=== PATIENT | female | born 2000 | race African-American/Black ===

== ENCOUNTER → 2023-03-08 | Outpatient (REF) | payer OTHER ==
[2023-03-08 18:29] LABS: BASO % 0.4 % (0.0-1.0); EOS # 0.2 10^3/uL (0.0-0.5); EOS % 1.9 % (0.0-3.0); HEMATOCRIT 37.1 % (36.0-47.0); HEMOGLOBIN 11.6 g/dl (12.0-15.5); LYMPH # 2.8 10^3/uL (1.5-5.0); LYMPH % 33.4 % (24.0-44.0); MEAN CORPUSCULAR HEMOGLOBIN 27.6 pg (27.0-33.0); MEAN CORPUSCULAR HGB CONC 31.3 g/dl (32.0-36.5); MEAN CORPUSCULAR VOLUME 88.3 fl (80.0-96.0); MONO # 0.4 10^3/uL (0.0-0.8); MONO % 5.1 % (2.0-8.0); NEUTROPHILS # 4.9 10^3/uL (1.5-8.5); NEUTROPHILS % 58.7 % (36.0-66.0); PLATELET COUNT, AUTOMATED 469 10^3/uL (150-450); WHITE BLOOD COUNT 8.3 10^3/uL (4.0-10.0)
[2023-03-08 18:54] LABS: TOTAL IRON BINDING CAPACITY 362 UG/DL (250-425)
[2023-03-08 18:55] LABS: ALBUMIN 3.8 G/DL (3.2-5.2); ALKALINE PHOSPHATASE 95 U/L (46-116); ALT/SGPT 18 U/L (7.0-40); AST/SGOT < 8 U/L (<34); BILIRUBIN,TOTAL 0.6 MG/DL (0.3-1.2); BLOOD UREA NITROGEN 12 MG/DL (9-23); CALCIUM LEVEL 9.3 MG/DL (8.5-10.1); CARBON DIOXIDE LEVEL 27 MMOL/L (20-31); CHLORIDE LEVEL 100 MMOL/L (98-107); CHOLESTEROL LEVEL 126 MG/DL (<200); CHOLESTEROL RISK RATIO 2.57 (<5); CREATININE FOR GFR 0.61 MG/DL (0.55-1.30); GLOMERULAR FILTRATION RATE > 60.0 (>60); GLUCOSE, FASTING 76 MG/DL (60-100); IRON (FE) 81 UG/DL (50-170); LDL CHOLESTEROL 58.8 MG/DL (<100); PERCENT SATURATION 22.4 % (13.2-45.0); POTASSIUM SERUM 4.5 MMOL/L (3.5-5.1); SODIUM LEVEL 135 MMOL/L (136-145); TOTAL PROTEIN 7.8 G/DL (5.7-8.2); TRIGLYCERIDES LEVEL 91 MG/DL (<150)
[2023-03-08 18:59] LABS: THYROID STIMULATING HORMONE 1.141 uIU/ML (0.55-4.78)
[2023-03-08 19:00] LABS: FERRITIN 54.8 NG/ML (7.3-270.7); TOTAL 25(OH) VITAMIN D 22.6 NG/ML (20.0-100.0)
[2023-03-08 19:10] LABS: HEMOGLOBIN A1c 5.5 % (4.0-6.0)
== END ==
LOC: M LAB REF 17:24
PROVIDERS: ATTEND Pediatrics
DX: D50.9 Iron deficiency anemia, unspecified (principal); E55.9 Vitamin D deficiency, unspecified; E66.9 Obesity, unspecified

== ENCOUNTER 2023-03-30 18:35 | Emergency (ER) | payer OTHER ==
[~2023-03-30] VITALS: Ht 154.9 cm; Wt 92.9 kg
[2023-03-30 19:20] LABS: BASO % 0.3 % (0.0-1.0); EOS # 0.2 10^3/uL (0.0-0.5); EOS % 1.9 % (0.0-3.0); HEMATOCRIT 33.4 % (36.0-47.0); HEMOGLOBIN 10.5 g/dl (12.0-15.5); LYMPH % 31.7 % (24.0-44.0); MEAN CORPUSCULAR HEMOGLOBIN 27.9 pg (27.0-33.0); MEAN CORPUSCULAR HGB CONC 31.4 g/dl (32.0-36.5); MEAN CORPUSCULAR VOLUME 88.6 fl (80.0-96.0); MONO # 0.6 10^3/uL (0.0-0.8); MONO % 5.7 % (2.0-8.0); NEUTROPHILS # 5.8 10^3/uL (1.5-8.5); NEUTROPHILS % 60.1 % (36.0-66.0); PLATELET COUNT, AUTOMATED 421 10^3/uL (150-450); RED BLOOD COUNT 3.77 10^6/uL (4.00-5.40); WHITE BLOOD COUNT 9.6 10^3/uL (4.0-10.0)
[2023-03-30 19:52] LABS: BLOOD UREA NITROGEN 11 MG/DL (9-23); CALCIUM LEVEL 9.9 MG/DL (8.5-10.1); CARBON DIOXIDE LEVEL 27 MMOL/L (20-31); CHLORIDE LEVEL 103 MMOL/L (98-107); CREATININE FOR GFR 0.61 MG/DL (0.55-1.30); GLOMERULAR FILTRATION RATE > 60.0 (>60); GLUCOSE, FASTING 100 MG/DL (60-100); POTASSIUM SERUM 4.1 MMOL/L (3.5-5.1); SODIUM LEVEL 138 MMOL/L (136-145)
[2023-03-30 20:05] LABS: HCG, SERUM QUANTITATIVE 3529.2 MIU/ML (<4.2)
[2023-03-30 22:18] VITALS: BP 129/58; TEMP 97.7; O2SAT 98
[2023-03-30] MEDS ORDERED: NS 1,000 ML IV ONE (23:05)
[2023-03-30] MEDS ORDERED: ONDANSETRON 4MG 2ML VIAL IV ONE (23:05)
== END 2023-03-31 00:44 | disposition home or self-care (01) ==
LOC: M ED 18:35
DX: O26.91 Pregnancy related conditions, unspecified, first trimester (principal); R42 Dizziness and giddiness; Z3A.01 Less than 8 weeks gestation of pregnancy
CPT/HCPCS: 36415; 76801; 76817; 80048; 81001; 84702; 85025; 86850; 86900; 86901; 87086; 93976; 96374; 99284; J2405

== ENCOUNTER 2023-04-23 22:47 | Emergency (ER) | payer OTHER ==
[~2023-04-23] VITALS: Ht 154.9 cm; Wt 91.6 kg
[2023-04-23 22:48] VITALS: BP 141/75; TEMP 97.3; O2SAT 99
[2023-04-23] MEDS ORDERED: PRENTAB7 PO (22:51)
[2023-04-23] MEDS ORDERED: NS 1,000 ML IV ONE (23:05)
[2023-04-23 23:33] LABS: BASO % 0.3 % (0.0-1.0); EOS # 0.1 10^3/uL (0.0-0.5); EOS % 1.2 % (0.0-3.0); HEMATOCRIT 35.1 % (36.0-47.0); HEMOGLOBIN 11.3 g/dl (12.0-15.5); LYMPH # 2.8 10^3/uL (1.5-5.0); LYMPH % 30.2 % (24.0-44.0); MEAN CORPUSCULAR HEMOGLOBIN 27.8 pg (27.0-33.0); MEAN CORPUSCULAR HGB CONC 32.2 g/dl (32.0-36.5); MEAN CORPUSCULAR VOLUME 86.5 fl (80.0-96.0); MONO # 0.5 10^3/uL (0.0-0.8); NEUTROPHILS # 5.8 10^3/uL (1.5-8.5); PLATELET COUNT, AUTOMATED 424 10^3/uL (150-450); RED BLOOD COUNT 4.06 10^6/uL (4.00-5.40); WHITE BLOOD COUNT 9.2 10^3/uL (4.0-10.0)
[2023-04-23 23:57] LABS: ALBUMIN 3.5 G/DL (3.2-5.2); ALKALINE PHOSPHATASE 82 U/L (46-116); ALT/SGPT 10 U/L (7.0-40); AST/SGOT < 8 U/L (<34); BILIRUBIN,TOTAL 0.5 MG/DL (0.3-1.2); BLOOD UREA NITROGEN 9 MG/DL (9-23); CALCIUM LEVEL 9.2 MG/DL (8.5-10.1); CARBON DIOXIDE LEVEL 25 MMOL/L (20-31); CHLORIDE LEVEL 102 MMOL/L (98-107); CREATININE FOR GFR 0.56 MG/DL (0.55-1.30); GLOMERULAR FILTRATION RATE > 60.0 (>60); GLUCOSE, FASTING 124 MG/DL (60-100); MAGNESIUM LEVEL 1.8 MG/DL (1.8-2.4); POTASSIUM SERUM 3.8 MMOL/L (3.5-5.1); SODIUM LEVEL 136 MMOL/L (136-145); TOTAL PROTEIN 7.9 G/DL (5.7-8.2)
== END 2023-04-24 02:05 | disposition home or self-care (01) ==
LOC: M ED 22:47
DX: O20.9 Hemorrhage in early pregnancy, unspecified (principal); Z3A.09 9 weeks gestation of pregnancy

== ENCOUNTER → 2023-05-09 | Outpatient (CLI) | payer OTHER ==
[~2023-05-09] MED LIST: PRENTAB7 PO
[2023-05-09 14:18] LABS: HEMATOCRIT 35.8 % (36.0-47.0); HEMOGLOBIN 11.3 g/dl (12.0-15.5); MEAN CORPUSCULAR HEMOGLOBIN 28.2 pg (27.0-33.0); MEAN CORPUSCULAR HGB CONC 31.6 g/dl (32.0-36.5); MEAN CORPUSCULAR VOLUME 89.3 fl (80.0-96.0); PLATELET COUNT, AUTOMATED 433 10^3/uL (150-450); RED BLOOD COUNT 4.01 10^6/uL (4.00-5.40); WHITE BLOOD COUNT 7.1 10^3/uL (4.0-10.0)
[2023-05-09 15:23] LABS: HIV 1&2 SCREEN NEGATIVE (NEGATIVE)
[2023-05-09 15:30] LABS: HEPATITIS C VIRUS ABY INDEX 0.17 INDEX (<0.8)
[2023-05-09 15:41] LABS: GC DNA AMPLIFICATION NEGATIVE (NEGATIVE)
== END ==
LOC: M PLALAB 08:58
PROVIDERS: ATTEND Obstetrics & Gynecology
DX: Z34.91 Encounter for supervision of normal pregnancy, unspecified, first trimester (principal)

== ENCOUNTER 2023-06-29 18:00 | Emergency (ER) | payer OTHER ==
[~2023-06-29] VITALS: Ht 154.9 cm; Wt 90.0 kg
[2023-06-29] MEDS ORDERED: ASPI81CH33 PO (18:21)
[2023-06-29] MEDS ORDERED: RA N1TAB PO (18:21)
[2023-06-29] MEDS ORDERED: B-12100011 SL (18:21)
[2023-06-29] MEDS ORDERED: FERR325T82 PO (18:21)
[2023-06-29] MEDS ORDERED: ACETAMINOPHEN 500 MG TAB PO ONE (19:30)
[2023-06-29 19:59] LABS: BASO % 0.2 % (0.0-1.0); EOS # 0.2 10^3/uL (0.0-0.5); EOS % 1.7 % (0.0-3.0); HEMATOCRIT 31.2 % (36.0-47.0); HEMOGLOBIN 10.2 g/dl (12.0-15.5); LYMPH # 2.5 10^3/uL (1.5-5.0); LYMPH % 28.3 % (24.0-44.0); MEAN CORPUSCULAR HEMOGLOBIN 29.3 pg (27.0-33.0); MEAN CORPUSCULAR HGB CONC 32.7 g/dl (32.0-36.5); MEAN CORPUSCULAR VOLUME 89.7 fl (80.0-96.0); MONO # 0.5 10^3/uL (0.0-0.8); MONO % 5.9 % (2.0-8.0); NEUTROPHILS # 5.6 10^3/uL (1.5-8.5); NEUTROPHILS % 63.4 % (36.0-66.0); PLATELET COUNT, AUTOMATED 358 10^3/uL (150-450); RED BLOOD COUNT 3.48 10^6/uL (4.00-5.40); WHITE BLOOD COUNT 8.8 10^3/uL (4.0-10.0)
[2023-06-29 20:24] LABS: BLOOD UREA NITROGEN 11 MG/DL (9-23); CALCIUM LEVEL 9.2 MG/DL (8.5-10.1); CARBON DIOXIDE LEVEL 27 MMOL/L (20-31); CHLORIDE LEVEL 105 MMOL/L (98-107); CREATININE FOR GFR 0.54 MG/DL (0.55-1.30); GLOMERULAR FILTRATION RATE > 60.0 (>60); GLUCOSE, FASTING 83 MG/DL (60-100); POTASSIUM SERUM 4.1 MMOL/L (3.5-5.1); SODIUM LEVEL 139 MMOL/L (136-145)
[2023-06-29 22:39] LABS: GC DNA AMPLIFICATION NEGATIVE (NEGATIVE)
[2023-06-29] MEDS ORDERED: METR-265 PO (22:44)
[2023-06-29] MEDS ORDERED: metroNIDAZOLE (FLAGYL) 500MG TABLET PO ONE (22:50)
[2023-06-29 23:00] VITALS: BP 137/74; TEMP 97.9; O2SAT 99
== END 2023-06-29 23:00 | disposition home or self-care (01) ==
LOC: M ED 18:00
DX: O23.592 Infection of other part of genital tract in pregnancy, second trimester (principal); O9A.22 Injury, poisoning and certain other consequences of external causes complicating childbirth; R10.2 Pelvic and perineal pain; W19.XXXA Unspecified fall, initial encounter; Z3A.18 18 weeks gestation of pregnancy

== ENCOUNTER → 2023-07-13 | Outpatient (CLI) | payer OTHER ==
[~2023-07-13] MED LIST changes: +ASPI81CH33 PO; +B-12100011 SL; +FERR325T82 PO; +METR-265 PO; +RA N1TAB PO
== END ==
LOC: M WHC 14:12
PROVIDERS: ATTEND Obstetrics & Gynecology
DX: Z34.82 Encounter for supervision of other normal pregnancy, second trimester (principal)

== ENCOUNTER → 2023-08-16 | Outpatient (CLI) | payer OTHER ==
[2023-08-16 16:30] LABS: HEMOGLOBIN 9.5 g/dl (12.0-15.5); MEAN CORPUSCULAR HEMOGLOBIN 29.1 pg (27.0-33.0); MEAN CORPUSCULAR HGB CONC 31.7 g/dl (32.0-36.5); PLATELET COUNT, AUTOMATED 322 10^3/uL (150-450); RED BLOOD COUNT 3.26 10^6/uL (4.00-5.40); WHITE BLOOD COUNT 9.8 10^3/uL (4.0-10.0)
[2023-08-16 20:58] LABS: CHLAMYDIA DNA AMPLIFICATION NEGATIVE (NEGATIVE); GC DNA AMPLIFICATION NEGATIVE (NEGATIVE)
== END ==
LOC: M PLALAB 12:44
PROVIDERS: ATTEND Obstetrics & Gynecology
DX: Z34.82 Encounter for supervision of other normal pregnancy, second trimester (principal)

== ENCOUNTER → 2023-08-29 | Outpatient (CLI) | payer OTHER ==
[~2023-08-29] MED LIST changes: +IRON SUCROSE 500 MG in NS 250 ML OVER 4 HRS IV ONE
== END ==
LOC: M INFU 09:11
PROVIDERS: ATTEND Obstetrics & Gynecology
DX: Z53.9 Procedure and treatment not carried out, unspecified reason (principal); D64.9 Anemia, unspecified

== ENCOUNTER 2023-09-08 09:04 | Outpatient (CLI) | payer OTHER ==
[~2023-09-08] VITALS: Ht 154.9 cm; Wt 95.5 kg
[~2023-09-08 09:04] MED LIST changes: -IRON SUCROSE 500 MG in NS 250 ML OVER 4 HRS IV ONE
[2023-09-08 09:28] VITALS: BP 122/59; O2SAT 100
[2023-09-08] MEDS ORDERED: IRON SUCROSE 500 MG in NS 250 ML OVER 4 HRS IV ONE (09:30)
[2023-09-08 11:00] VITALS: BP 132/64; O2SAT 100
[2023-09-08 12:00] VITALS: BP 116/56; O2SAT 98
[2023-09-08 13:50] VITALS: BP 138/60; O2SAT 100
== END 2023-09-08 14:00 ==
LOC: M INFU 09:04
PROVIDERS: ATTEND Obstetrics & Gynecology
DX: D64.9 Anemia, unspecified (principal)
CPT/HCPCS: 76815; 81001; 82731; 96365; 96366; J1756

== ENCOUNTER 2023-09-08 17:46 | Outpatient (CLI) | payer OTHER ==
[~2023-09-08] VITALS: Ht 154.9 cm; Wt 95.3 kg
[2023-09-08 18:05] VITALS: BP 130/69; O2SAT 98
[2023-09-08] MEDS ORDERED: HOME MED LIST COMPLETE! XX SCH (18:15)
== END 2023-09-08 21:07 | disposition home or self-care (01) ==
LOC: M LDO 17:46
PROVIDERS: ATTEND Obstetrics & Gynecology
DX: O26.893 Other specified pregnancy related conditions, third trimester (principal); R10.32 Left lower quadrant pain; Z3A.28 28 weeks gestation of pregnancy
CPT/HCPCS: 59025; 87086; G0463

== ENCOUNTER 2023-09-20 17:08 | Outpatient (CLI) | payer OTHER ==
[~2023-09-20] VITALS: Ht 154.9 cm; Wt 96.3 kg
[2023-09-20 17:29] VITALS: BP 85/37
[2023-09-20 17:32] VITALS: BP 103/51; O2SAT 98
[2023-09-20] MEDS ORDERED: HOME MED LIST COMPLETE! XX SCH (17:35)
[2023-09-20] MEDS ORDERED: ACETAMINOPHEN 500 MG TAB PO ONE (18:00)
[2023-09-20 19:23] LABS: APPEARANCE, URINE HAZY (CLEAR); BACTERIA, URINE AUTO 1+ (NEGATIVE); BILIRUBIN, URINE AUTO NEGATIVE (NEGATIVE); BLOOD, URINE BLOOD NEGATIVE (NEGATIVE); COLOR, URINE YELLOW (YELLOW); GLUCOSE, URINE (UA) AUTO NEGATIVE (NEGATIVE); KETONE, URINE AUTO NEGATIVE (NEGATIVE); LEUKOCYTE ESTERASE, URINE AUTO 3+ (NEGATIVE); MUCUS, URINE SMALL (NEGATIVE); NITRITE, URINE AUTO NEGATIVE (NEGATIVE); PROTEIN, URINE AUTO NEGATIVE (NEGATIVE); RBC, URINE AUTO 1 /HPF (0-3); SPECIFIC GRAVITY URINE AUTO 1.012 (1.002-1.035); SQUAMOUS EPITHELIAL CELL UR AU 7 /HPF (0-6); UROBILINOGEN, URINE AUTO 0.2 mg/dL (0.0-2.0); WBC, URINE AUTO 5 /HPF (0-3)
[2023-09-20] MEDS ORDERED: NITROFURANTOIN (MACROBID) 100 MG CAP PO ONE (20:00)
== END 2023-09-20 20:10 | disposition home or self-care (01) ==
LOC: M LDO 17:08
PROVIDERS: ATTEND Obstetrics & Gynecology
DX: O26.893 Other specified pregnancy related conditions, third trimester (principal); M54.41 Lumbago with sciatica, right side; Z3A.30 30 weeks gestation of pregnancy
CPT/HCPCS: 59025; 81001; 87086; G0463

== ENCOUNTER 2023-10-03 13:02 | Outpatient (CLI) | payer OTHER ==
[~2023-10-03] VITALS: Ht 154.9 cm; Wt 98.4 kg
[2023-10-03 13:25] VITALS: BP 106/53
[2023-10-03 14:29] LABS: APPEARANCE, URINE HAZY (CLEAR); BACTERIA, URINE AUTO NEGATIVE (NEGATIVE); BILIRUBIN, URINE AUTO NEGATIVE (NEGATIVE); BLOOD, URINE BLOOD NEGATIVE (NEGATIVE); COLOR, URINE YELLOW (YELLOW); GLUCOSE, URINE (UA) AUTO NEGATIVE (NEGATIVE); KETONE, URINE AUTO NEGATIVE (NEGATIVE); LEUKOCYTE ESTERASE, URINE AUTO 2+ (NEGATIVE); MUCUS, URINE SMALL (NEGATIVE); NITRITE, URINE AUTO NEGATIVE (NEGATIVE); PROTEIN, URINE AUTO NEGATIVE (NEGATIVE); RBC, URINE AUTO 2 /HPF (0-3); SPECIFIC GRAVITY URINE AUTO 1.012 (1.002-1.035); SQUAMOUS EPITHELIAL CELL UR AU 8 /HPF (0-6); UROBILINOGEN, URINE AUTO 0.2 mg/dL (0.0-2.0); WBC, URINE AUTO 20 /HPF (0-3)
[2023-10-03] MEDS ORDERED: ACETAMINOPHEN 500 MG TAB PO ONE (14:50)
== END 2023-10-03 15:30 | disposition home or self-care (01) ==
LOC: M LDO 13:02
PROVIDERS: ATTEND Advanced Practice Midwife
DX: O47.1 False labor at or after 37 completed weeks of gestation (principal); O26.893 Other specified pregnancy related conditions, third trimester; O99.013 Anemia complicating pregnancy, third trimester; D50.9 Iron deficiency anemia, unspecified; R51.9 Headache, unspecified; Z87.59 Personal history of other complications of pregnancy, childbirth and the puerperium; Z3A.32 32 weeks gestation of pregnancy
CPT/HCPCS: 59025; 76817; 81001; 87088; G0463

== ENCOUNTER 2023-10-04 16:00 | Emergency (ER) | payer OTHER ==
[~2023-10-04] VITALS: Ht 154.9 cm; Wt 97.2 kg
[2023-10-04 16:35] LABS: BASO % 0.2 % (0.0-1.0); EOS # 0.1 10^3/uL (0.0-0.5); EOS % 0.6 % (0.0-3.0); HEMATOCRIT 32.8 % (36.0-47.0); HEMOGLOBIN 10.5 g/dl (12.0-15.5); LYMPH # 2.7 10^3/uL (1.5-5.0); LYMPH % 23.6 % (24.0-44.0); MEAN CORPUSCULAR HEMOGLOBIN 29.2 pg (27.0-33.0); MEAN CORPUSCULAR VOLUME 91.1 fl (80.0-96.0); MONO # 0.5 10^3/uL (0.0-0.8); MONO % 4.7 % (2.0-8.0); NEUTROPHILS % 69.9 % (36.0-66.0); PLATELET COUNT, AUTOMATED 315 10^3/uL (150-450); WHITE BLOOD COUNT 11.5 10^3/uL (4.0-10.0)
[2023-10-04 16:48] VITALS: TEMP 97.5
[2023-10-04 16:57] LABS: INR 1.03; PROTHROMBIN TIME 13.2 SECONDS (12.5-14.5)
[2023-10-04 16:58] LABS: PARTIAL THROMBOPLASTIN TIME 27.8 SECONDS (24.8-34.2)
[2023-10-04] MEDS ORDERED: ACETAMINOPHEN TAB 650MG DOSE (2X325MG) PO ONE (17:00)
[2023-10-04 17:05] LABS: ALBUMIN 3.1 G/DL (3.2-5.2); ALKALINE PHOSPHATASE 147 U/L (46-116); ALT/SGPT 12 U/L (7.0-40); AST/SGOT 31 U/L (<34); BILIRUBIN,DIRECT < 0.1 MG/DL (<0.4); BILIRUBIN,TOTAL 0.4 MG/DL (0.3-1.2); BLOOD UREA NITROGEN 6 MG/DL (9-23); CALCIUM LEVEL 8.9 MG/DL (8.5-10.1); CARBON DIOXIDE LEVEL 22 MMOL/L (20-31); CHLORIDE LEVEL 105 MMOL/L (98-107); CREATININE FOR GFR 0.42 MG/DL (0.55-1.30); GLOMERULAR FILTRATION RATE > 60.0 (>60); GLUCOSE, FASTING 72 MG/DL (60-100); POTASSIUM SERUM 4.8 MMOL/L (3.5-5.1); SODIUM LEVEL 135 MMOL/L (136-145); TOTAL PROTEIN 7.1 G/DL (5.7-8.2)
[2023-10-04] MEDS ORDERED: ISOVUE-370 76% 100ML VIAL As Ordered ONE (17:37)
[2023-10-04 18:45] VITALS: BP 101/56; O2SAT 98
== END 2023-10-04 19:16 | disposition admitted as inpatient to this hospital (09) ==
LOC: EDBD 16:00 → M ED 16:00
DX: R10.11 Right upper quadrant pain (principal); R10.31 Right lower quadrant pain; V49.50XA Passenger injured in collision with unspecified motor vehicles in traffic accident, initial encounter; Y92.9 Unspecified place or not applicable; Y93.9 Activity, unspecified; Y99.9 Unspecified external cause status; Z3A.32 32 weeks gestation of pregnancy; Z79.82 Long term (current) use of aspirin; Z79.899 Other long term (current) drug therapy
CPT/HCPCS: 74177; 76705; 80047; 80048; 80076; 81001; 85025; 85610; 85730; 86850; 86900; 86901; 87086; 93041; 94760; 99285; Q9967

== ENCOUNTER 2023-10-04 19:20 | Outpatient (CLI) | payer OTHER ==
[~2023-10-04] VITALS: Ht 154.9 cm; Wt 98.4 kg
[2023-10-04 19:44] VITALS: BP 117/63
[2023-10-04 23:08] VITALS: BP 122/59
== END 2023-10-04 23:12 | disposition home or self-care (01) ==
LOC: M LDO 19:20
PROVIDERS: ATTEND Obstetrics & Gynecology
DX: Z04.1 Encounter for examination and observation following transport accident (principal); O26.893 Other specified pregnancy related conditions, third trimester; R10.817 Generalized abdominal tenderness; M54.59 Other low back pain; O99.013 Anemia complicating pregnancy, third trimester; D50.9 Iron deficiency anemia, unspecified; Z87.59 Personal history of other complications of pregnancy, childbirth and the puerperium; Z3A.32 32 weeks gestation of pregnancy
CPT/HCPCS: 36415; 59025; 85460; G0463

== ENCOUNTER → 2023-10-10 | Outpatient (CLI) | payer OTHER ==
[2023-10-10 16:35] LABS: HEMATOCRIT 29.5 % (36.0-47.0); HEMOGLOBIN 9.5 g/dl (12.0-15.5); MEAN CORPUSCULAR HGB CONC 32.2 g/dl (32.0-36.5); MEAN CORPUSCULAR VOLUME 93.1 fl (80.0-96.0); PLATELET COUNT, AUTOMATED 325 10^3/uL (150-450); RED BLOOD COUNT 3.17 10^6/uL (4.00-5.40); WHITE BLOOD COUNT 9.1 10^3/uL (4.0-10.0)
== END ==
LOC: M PLALAB 13:34
PROVIDERS: ATTEND Obstetrics & Gynecology
DX: Z36.9 Encounter for antenatal screening, unspecified (principal); O99.013 Anemia complicating pregnancy, third trimester; D50.9 Iron deficiency anemia, unspecified; O26.893 Other specified pregnancy related conditions, third trimester; O98.313 Other infections with a predominantly sexual mode of transmission complicating pregnancy, third trimester; A60.00 Herpesviral infection of urogenital system, unspecified; Z87.59 Personal history of other complications of pregnancy, childbirth and the puerperium; Z3A.33 33 weeks gestation of pregnancy; Z79.82 Long term (current) use of aspirin
CPT/HCPCS: 36415; 59025; 85027; G0463

== ENCOUNTER 2023-10-18 22:23 | Outpatient (CLI) | payer OTHER ==
[~2023-10-18] VITALS: Ht 154.9 cm; Wt 96.9 kg
[2023-10-18 23:31] VITALS: BP 133/58
== END 2023-10-18 23:21 | disposition home or self-care (01) ==
LOC: M LDO 22:23
PROVIDERS: ATTEND Specialist
DX: O26.893 Other specified pregnancy related conditions, third trimester (principal); O99.73 Diseases of the skin and subcutaneous tissue complicating the puerperium; O98.53 Other viral diseases complicating the puerperium; O99.013 Anemia complicating pregnancy, third trimester; L73.2 Hidradenitis suppurativa; N90.89 Other specified noninflammatory disorders of vulva and perineum; R87.810 Cervical high risk human papillomavirus (HPV) DNA test positive; D50.9 Iron deficiency anemia, unspecified; Z3A.34 34 weeks gestation of pregnancy
CPT/HCPCS: 59025; 87529; G0463

== ENCOUNTER 2023-10-28 13:18 | Outpatient (CLI) | payer OTHER ==
[~2023-10-28] VITALS: Ht 154.9 cm; Wt 98.1 kg
[2023-10-28 13:44] VITALS: BP 141/67
[2023-10-28] MEDS ORDERED: HOME MED LIST COMPLETE! XX SCH (14:00)
[2023-10-28 14:38] VITALS: BP 133/66
== END 2023-10-28 15:15 | disposition home or self-care (01) ==
LOC: M LDO 13:18
PROVIDERS: ATTEND Advanced Practice Midwife
DX: O47.03 False labor before 37 completed weeks of gestation, third trimester (principal); Z3A.35 35 weeks gestation of pregnancy; O99.013 Anemia complicating pregnancy, third trimester; D50.9 Iron deficiency anemia, unspecified
CPT/HCPCS: 59025; G0463

== ENCOUNTER 2023-11-02 15:13 | Outpatient (CLI) | payer OTHER ==
[~2023-11-02] VITALS: Ht 154.9 cm; Wt 97.9 kg
[2023-11-02] MEDS ORDERED: ACET-1349 PO (15:34)
[2023-11-02] MEDS ORDERED: HOME MED LIST COMPLETE! XX SCH (15:35)
[2023-11-02 15:40] VITALS: BP 118/69
[2023-11-02 16:56] LABS: APPEARANCE, URINE HAZY (CLEAR); BACTERIA, URINE AUTO NEGATIVE (NEGATIVE); BILIRUBIN, URINE AUTO NEGATIVE (NEGATIVE); BLOOD, URINE BLOOD 1+ (NEGATIVE); COLOR, URINE STRAW (YELLOW); GLUCOSE, URINE (UA) AUTO NEGATIVE (NEGATIVE); KETONE, URINE AUTO NEGATIVE (NEGATIVE); LEUKOCYTE ESTERASE, URINE AUTO 2+ (NEGATIVE); NITRITE, URINE AUTO NEGATIVE (NEGATIVE); PROTEIN, URINE AUTO NEGATIVE (NEGATIVE); RBC, URINE AUTO 0 /HPF (0-3); SPECIFIC GRAVITY URINE AUTO 1.006 (1.002-1.035); SQUAMOUS EPITHELIAL CELL UR AU 2 /HPF (0-6); UROBILINOGEN, URINE AUTO 0.2 mg/dL (0.0-2.0); WBC, URINE AUTO 5 /HPF (0-3)
== END 2023-11-02 18:56 | disposition home or self-care (01) ==
LOC: M LDO 15:13
PROVIDERS: ATTEND Advanced Practice Midwife
DX: O47.03 False labor before 37 completed weeks of gestation, third trimester (principal); Z3A.36 36 weeks gestation of pregnancy
CPT/HCPCS: 59025; 81001; 87081; G0463

== ENCOUNTER 2023-11-09 15:14 | Outpatient (CLI) | payer OTHER ==
[~2023-11-09] VITALS: Ht 154.9 cm; Wt 99.2 kg
[~2023-11-09 15:14] MED LIST changes: +ACET-1349 PO
== END 2023-11-09 18:00 | disposition home or self-care (01) ==
LOC: M LDO 15:14
PROVIDERS: ATTEND Advanced Practice Midwife
DX: O36.8130 Decreased fetal movements, third trimester, not applicable or unspecified (principal); O99.013 Anemia complicating pregnancy, third trimester; D50.9 Iron deficiency anemia, unspecified; Z3A.37 37 weeks gestation of pregnancy
CPT/HCPCS: 59025; 76815; 76819; 76820; 96365; 96366; G0463; J1756

== ENCOUNTER 2023-11-19 13:20 | Inpatient (IN) | payer OTHER ==
[2023-11-19] VITALS (19 sets, daily range): BP systolic 102–170; BP diastolic 56–96
[~2023-11-19] VITALS: Ht 154.9 cm; Wt 100.1 kg
[2023-11-19] MEDS ORDERED: VALT500T PO (13:42)
[2023-11-19] MEDS ORDERED: HOME MED LIST COMPLETE! XX SCH (13:45)
[2023-11-19] MEDS ORDERED: METHYLERGONOVINE MALEATE 0.2MG/ML 1ML VIAL IM PRN (15:30)
[2023-11-19] MEDS ORDERED: TRANEXAMIC ACID INJection 1,000 MG in NS 100 ML IV PRN (15:30)
[2023-11-19] MEDS ORDERED: CARBOPROST TROMETHAMINE 250 MCG/ML AMP IM PRN (15:30)
[2023-11-19] MEDS ORDERED: OXYTOCIN DRIP 30 UNITS in IV 1 EA IV PRN (15:30)
[2023-11-19 15:50] LABS: HEMATOCRIT 33.1 % (36.0-47.0); HEMOGLOBIN 10.7 g/dl (12.0-15.5); MEAN CORPUSCULAR HEMOGLOBIN 28.8 pg (27.0-33.0); MEAN CORPUSCULAR HGB CONC 32.3 g/dl (32.0-36.5); MEAN CORPUSCULAR VOLUME 89.2 fl (80.0-96.0); PLATELET COUNT, AUTOMATED 323 10^3/uL (150-450); RED BLOOD COUNT 3.71 10^6/uL (4.00-5.40); WHITE BLOOD COUNT 7.9 10^3/uL (4.0-10.0)
[2023-11-19] MEDS ORDERED: diphenhydrAMINE 50MG/ML VIAL IV PRN ×2 (15:50→22:15)
[2023-11-19] MEDS ORDERED: ePHEDrine SULFATE 25 MG/5 ML(5MG/ML) SYRINGE IVP PRN (15:50)
[2023-11-19] MEDS ORDERED: EPIDURAL/PCA KEYS XX PRN (15:50)
[2023-11-19] MEDS ORDERED: NALOXONE INJ 0.4MG/1ML VIAL IV PRN ×3 (15:50→22:15)
[2023-11-19] MEDS ORDERED: ONDANSETRON 4MG 2ML VIAL IV PRN ×2 (15:50→22:15)
[2023-11-19] MEDS ORDERED: LR 500 ML IV PRN (15:50)
[2023-11-19] MEDS: LACTATED RINGER'S 1000 ML IV STA (15:52)
[2023-11-19] MEDS: FENTANYL/ROPIVACAINE/NACL BAG 100 ML EPIDURAL SCH (16:18)
[2023-11-19] MEDS: LR 1,000 ML IV SCH (16:35)
[2023-11-19] MEDS ORDERED: LR 1,000 ML IV SCH (18:10)
[2023-11-19] MEDS: OXYTOCIN DRIP 30 UNITS in IV 1 EA IV SCH (18:20)
[2023-11-19] MEDS: BICITRA 30ML SOLN UDC PO ONE (21:43)
[2023-11-19] MEDS: ceFAZolin SOD 2 GM in IV 1 EA IV ONE (21:44)
[2023-11-19] MEDS: AZITHROMYCIN INJ 500 MG, VIAL MATE ADAPTER 1 EACH in NS 250 ML IV ONE (21:44)
[2023-11-19] MEDS ORDERED: LIDOCAINE 2% W/EPINEPHRINE 20ML VIAL **PRES FREE As Ordered ONE (21:48)
[2023-11-19] MEDS ORDERED: OXYTOCIN INJ 10UNITS/ML 1ML VIAL As Ordered ONE (21:48)
[2023-11-19] MEDS ORDERED: MORPHINE PRES-FREE INJ 10 MG/10 ML VIAL As Ordered ONE (22:11)
[2023-11-19] MEDS ORDERED: **NOTE PATIENT COMMENT** MISC XX SCH (22:15)
[2023-11-19] MEDS ORDERED: fentaNYL 100 MCG/2 ML INJECTION IV PRN (22:15)
[2023-11-19] MEDS ORDERED: oxyCODONE 5MG TAB PO PRN ×2 (22:15→23:25)
[2023-11-19] MEDS ORDERED: METOCLOPRAMIDE INJ 10MG/2ML VIAL IV PRN (22:15)
[2023-11-19] MEDS ORDERED: SLF 3 ML SYR IV SCH (22:15)
[2023-11-19] MEDS ORDERED: MEPERIDINE 25 MG/ML 1ML VIAL IV PRN (22:15)
[2023-11-19] MEDS ORDERED: ONDANSETRON 4MG 2ML VIAL As Ordered ONE (22:22)
[2023-11-19] MEDS ORDERED: OXYTOCIN 30UNITS IN 0.9% NaCl 500ML IV BAG As Ordered ONE (22:31)
[2023-11-19] MEDS ORDERED: KETOROLAC 60MG 2ML VIAL As Ordered ONE (22:47)
[2023-11-19] MEDS ORDERED: RHOGAM 300MCG (1500IU) INJ IM SCH (23:25)
[2023-11-19] MEDS ORDERED: SIMETHICONE 80MG CHEW TAB PO PRN (23:25)
[2023-11-20] VITALS (11 sets, daily range): BP systolic 112–126; BP diastolic 57–66; TEMP 97.6; O2SAT 96–100
[2023-11-20] MEDS: ACETAMINOPHEN 500 MG TAB PO SCH (00:42)
[2023-11-20] MEDS: OXYTOCIN DRIP 30 UNITS in IV 1 EA IV SCH (02:57)
[2023-11-20] MEDS: KETOROLAC 30 MG/ML 1ML VIAL IV SCH (05:46)
[2023-11-20 07:10] LABS: HEMATOCRIT 28.3 % (36.0-47.0); HEMOGLOBIN 9.3 g/dl (12.0-15.5); MEAN CORPUSCULAR HEMOGLOBIN 29.9 pg (27.0-33.0); MEAN CORPUSCULAR HGB CONC 32.9 g/dl (32.0-36.5); PLATELET COUNT, AUTOMATED 249 10^3/uL (150-450); RED BLOOD COUNT 3.11 10^6/uL (4.00-5.40); WHITE BLOOD COUNT 11.2 10^3/uL (4.0-10.0)
[2023-11-20] MEDS: PRENATAL VITAMINS CHEWABLE TABLET PO SCH (07:58)
[2023-11-20] MEDS ORDERED: IBUP-1022 PO (10:34)
[2023-11-20] MEDS ORDERED: COLA100C5 PO (10:34)
[2023-11-20] MEDS ORDERED: ACET-683 PO (10:34)
[2023-11-20] MEDS ORDERED: OXYC-517 PO (10:34)
[2023-11-20] MEDS: DOCUSATE SODIUM 100MG CAPSULE PO PRN (11:42)
[2023-11-20] MEDS: FERROUS SULFATE 325MG TAB PO SCH (11:43)
[2023-11-20] MEDS: IBUPROFEN 600MG TAB PO SCH (23:26)
[2023-11-21 02:00] VITALS: BP 122/60; O2SAT 98
[2023-11-21 06:00] VITALS: BP 112/61; O2SAT 98
[2023-11-21] MEDS ORDERED: fentaNYL 100 MCG/2 ML INJECTION As Ordered ONE (07:05)
[2023-11-21] MEDS: MEASLES,MUMPS,RUBELLA VACCINE INJ (MMR-II) SC.IMMUN ONE (09:00)
[2023-11-21] MEDS: oxyCODONE 5MG TAB PO PRN (09:38)
[2023-11-21 10:30] VITALS: BP 103/65; O2SAT 98
[2023-11-21 13:40] VITALS: BP 129/67; O2SAT 99
[2023-11-21 18:00] VITALS: BP 122/63; O2SAT 100
[2023-11-21 22:00] VITALS: BP 118/68; O2SAT 99
[2023-11-22 02:00] VITALS: BP 114/61; O2SAT 100
[2023-11-22 06:00] VITALS: BP 108/58; O2SAT 97
[2023-11-22 10:00] VITALS: BP 117/56; O2SAT 97
== END 2023-11-22 15:09 | disposition home or self-care (01) | DRG 773 ==
LOC: M LDO 13:20 → M LDI 15:10 → M OBS 11-20 00:30
PROVIDERS: ADMIT Obstetrics & Gynecology; ATTEND Obstetrics & Gynecology
PROC: 10907ZC Drainage of Amniotic Fluid, Therapeutic from Products of Conception, Via Natural or Artificial Opening (ICD-10-PCS; 2023-11-19)
PROC: 10D00Z1 Extraction of Products of Conception, Low, Open Approach (ICD-10-PCS; principal; 2023-11-19 21:55)
DX: O98.32 Other infections with a predominantly sexual mode of transmission complicating childbirth (principal); Z3A.38 38 weeks gestation of pregnancy; O99.02 Anemia complicating childbirth; D64.9 Anemia, unspecified; Z79.899 Other long term (current) drug therapy; O77.0 Labor and delivery complicated by meconium in amniotic fluid; O76 Abnormality in fetal heart rate and rhythm complicating labor and delivery; O62.0 Primary inadequate contractions; Z37.0 Single live birth

== ENCOUNTER → 2023-12-09 | Outpatient (REF) | payer OTHER ==
[~2023-12-09] MED LIST changes: +ACET-683 PO; +COLA100C5 PO; +IBUP-1022 PO; +OXYC-517 PO; +VALT500T PO
[2023-12-09 12:09] LABS: BASO % 0.4 % (0.0-1.0); EOS # 0.2 10^3/uL (0.0-0.5); EOS % 2.7 % (0.0-3.0); HEMOGLOBIN 12.2 g/dl (12.0-15.5); LYMPH # 2.7 10^3/uL (1.5-5.0); LYMPH % 34.2 % (24.0-44.0); MEAN CORPUSCULAR HEMOGLOBIN 28.8 pg (27.0-33.0); MEAN CORPUSCULAR HGB CONC 31.3 g/dl (32.0-36.5); MONO # 0.4 10^3/uL (0.0-0.8); MONO % 5.5 % (2.0-8.0); NEUTROPHILS # 4.4 10^3/uL (1.5-8.5); NEUTROPHILS % 56.8 % (36.0-66.0); PLATELET COUNT, AUTOMATED 491 10^3/uL (150-450); RED BLOOD COUNT 4.24 10^6/uL (4.00-5.40); WHITE BLOOD COUNT 7.8 10^3/uL (4.0-10.0)
[2023-12-09 12:36] LABS: PERCENT SATURATION 16.4 % (13.2-45.0)
[2023-12-09 12:39] LABS: THYROID STIMULATING HORMONE 1.969 uIU/ML (0.55-4.78)
== END ==
LOC: M LAB REF 11:42
PROVIDERS: ATTEND Pediatrics
DX: D64.9 Anemia, unspecified (principal)

== ENCOUNTER → 2023-12-16 | Outpatient (CLI) | payer OTHER | LOC: M RAD 10:24 | PROVIDERS: ATTEND Pediatrics | DX: M51.17 Intervertebral disc disorders with radiculopathy, lumbosacral region (principal) ==

== ENCOUNTER 2024-01-30 12:20 | Outpatient (CLI) | payer OTHER ==
[~2024-01-30] VITALS: Ht 154.9 cm; Wt 94.5 kg
[2024-01-30 12:20] VITALS: BP 129/60; O2SAT 99
[2024-01-30] MEDS: IRON SUCROSE 300 MG in NS 250 ML OVER 90 MIN. IV ONE (12:29)
[2024-01-30 14:15] VITALS: BP 121/87; O2SAT 99
== END 2024-01-30 14:20 ==
LOC: M INFU 12:20
PROVIDERS: ATTEND Specialist
DX: D50.9 Iron deficiency anemia, unspecified (principal)
CPT/HCPCS: 96365; 96366; J1756

== ENCOUNTER 2024-02-06 16:20 | Outpatient (CLI) | payer OTHER ==
[~2024-02-06] VITALS: Ht 154.9 cm; Wt 94.5 kg
[2024-02-06 16:20] VITALS: BP 136/66; O2SAT 97
[2024-02-06] MEDS: IRON SUCROSE 300 MG in NS 250 ML OVER 90 MIN. IV ONE (16:21)
[2024-02-06 17:29] VITALS: BP 116/59; O2SAT 99
== END 2024-02-06 17:33 | disposition home or self-care (01) ==
LOC: M INFU 16:20
PROVIDERS: ATTEND Specialist
DX: D50.9 Iron deficiency anemia, unspecified (principal)
CPT/HCPCS: 96365; J1756

== ENCOUNTER 2024-03-05 12:30 | Outpatient (CLI) | payer OTHER ==
[~2024-03-05] VITALS: Ht 154.9 cm; Wt 94.5 kg
[2024-03-05 12:35] VITALS: BP 115/55; O2SAT 98
[2024-03-05] MEDS: IRON SUCROSE 300 MG in NS 250 ML OVER 90 MIN. IV ONE (13:04)
[2024-03-05 14:40] VITALS: BP 113/57; O2SAT 100
== END 2024-03-05 14:50 ==
LOC: M INFU 12:30
PROVIDERS: ATTEND Specialist
DX: D50.9 Iron deficiency anemia, unspecified (principal)
CPT/HCPCS: 96365; 96366; J1756

== ENCOUNTER → 2024-04-17 | Outpatient (CLI) | payer OTHER ==
[2024-04-17 18:26] LABS: HEPATITIS B SURFACE ANTIGEN NEGATIVE (NEGATIVE)
[2024-04-17 18:38] LABS: HIV 1&2 SCREEN NEGATIVE (NEGATIVE)
[2024-04-17 18:47] LABS: GC DNA AMPLIFICATION NEGATIVE (NEGATIVE); HEPATITIS B CORE ANTIBODY IGM NEGATIVE (NEGATIVE); HEPATITIS C VIRUS ABY INDEX < 0.02 INDEX (<0.8)
== END ==
LOC: M PLALAB 15:38
PROVIDERS: ATTEND Obstetrics & Gynecology
DX: Z01.419 Encounter for gynecological examination (general) (routine) without abnormal findings (principal); Z20.2 Contact with and (suspected) exposure to infections with a predominantly sexual mode of transmission

== ENCOUNTER → 2024-10-31 | Outpatient (REF) | payer OTHER | LOC: M LAB REF 16:23 | PROVIDERS: ATTEND Pediatrics | DX: R30.0 Dysuria (principal) ==

== ENCOUNTER → 2024-11-05 | Outpatient (CLI) | payer OTHER | LOC: M PLAIMG 14:39 | PROVIDERS: ATTEND Pediatrics | DX: K80.18 Calculus of gallbladder with other cholecystitis without obstruction (principal) ==

== ENCOUNTER → 2024-11-14 | Outpatient (REF) | payer OTHER ==
[2024-11-14 13:56] LABS: BASO % 0.4 % (0.0-1.0); EOS # 0.1 10^3/uL (0.0-0.5); HEMATOCRIT 40.2 % (36.0-47.0); HEMOGLOBIN 12.5 g/dl (12.0-15.5); LYMPH # 2.2 10^3/uL (1.5-5.0); LYMPH % 31.4 % (24.0-44.0); MEAN CORPUSCULAR HEMOGLOBIN 28.2 pg (27.0-33.0); MEAN CORPUSCULAR HGB CONC 31.1 g/dl (32.0-36.5); MEAN CORPUSCULAR VOLUME 90.7 fl (80.0-96.0); MONO # 0.3 10^3/uL (0.0-0.8); MONO % 4.1 % (2.0-8.0); NEUTROPHILS # 4.4 10^3/uL (1.5-8.5); NEUTROPHILS % 61.8 % (36.0-66.0); PLATELET COUNT, AUTOMATED 430 10^3/uL (150-450); RED BLOOD COUNT 4.43 10^6/uL (4.00-5.40)
[2024-11-14 14:03] LABS: HEMOGLOBIN A1c 5.4 % (4.0-6.0)
[2024-11-14 14:25] LABS: ALBUMIN 3.9 G/DL (3.2-5.2); ALKALINE PHOSPHATASE 92 U/L (35-104); ALT/SGPT 31 U/L (7.0-40); AST/SGOT 31 U/L (<34); BILIRUBIN,TOTAL 0.6 MG/DL (0.3-1.2); BLOOD UREA NITROGEN 12 MG/DL (9-23); CALCIUM LEVEL 9.2 MG/DL (8.5-10.1); CARBON DIOXIDE LEVEL 27 MMOL/L (20-31); CHLORIDE LEVEL 105 MMOL/L (98-107); CREATININE FOR GFR 0.69 MG/DL (0.55-1.30); GLOMERULAR FILTRATION RATE > 60.0 (>60); GLUCOSE, FASTING 128 MG/DL (60-100); POTASSIUM SERUM 4.3 MMOL/L (3.5-5.1); SODIUM LEVEL 141 MMOL/L (136-145); TOTAL PROTEIN 8.1 G/DL (5.7-8.2)
== END ==
LOC: M LAB REF 13:01
PROVIDERS: ATTEND Pediatrics
DX: R31.0 Gross hematuria (principal); Z68.38 Body mass index [BMI] 38.0-38.9, adult; R35.0 Frequency of micturition

== ENCOUNTER → 2025-01-10 | Outpatient (REF) | payer OTHER ==
[2025-01-10 14:36] LABS: BASO % 0.4 % (0.0-1.0); EOS # 0.2 10^3/uL (0.0-0.5); EOS % 2.7 % (0.0-3.0); HEMATOCRIT 38.4 % (36.0-47.0); LYMPH # 2.9 10^3/uL (1.5-5.0); LYMPH % 32.2 % (24.0-44.0); MEAN CORPUSCULAR HEMOGLOBIN 28.7 pg (27.0-33.0); MEAN CORPUSCULAR HGB CONC 31.3 g/dl (32.0-36.5); MEAN CORPUSCULAR VOLUME 91.9 fl (80.0-96.0); MONO # 0.5 10^3/uL (0.0-0.8); MONO % 5.2 % (2.0-8.0); NEUTROPHILS # 5.3 10^3/uL (1.5-8.5); NEUTROPHILS % 58.9 % (36.0-66.0); PLATELET COUNT, AUTOMATED 396 10^3/uL (150-450); RED BLOOD COUNT 4.18 10^6/uL (4.00-5.40)
[2025-01-10 14:38] LABS: C REACTIVE PROTEIN QUANTITATIV 5.14 MG/DL (<1.0)
[2025-01-10 14:39] LABS: ALBUMIN 3.8 G/DL (3.2-5.2); ALKALINE PHOSPHATASE 89 U/L (35-104); ALT/SGPT 19 U/L (7.0-40); AST/SGOT 15 U/L (<34); BILIRUBIN,TOTAL 0.6 MG/DL (0.3-1.2); BLOOD UREA NITROGEN 12 MG/DL (9-23); CALCIUM LEVEL 9.3 MG/DL (8.5-10.1); CARBON DIOXIDE LEVEL 28 MMOL/L (20-31); CHLORIDE LEVEL 105 MMOL/L (98-107); CREATININE FOR GFR 0.63 MG/DL (0.55-1.30); GLOMERULAR FILTRATION RATE > 90.0 (>60); GLUCOSE, FASTING 80 MG/DL (60-100); POTASSIUM SERUM 4.2 MMOL/L (3.5-5.1); SODIUM LEVEL 141 MMOL/L (136-145); TOTAL PROTEIN 8.1 G/DL (5.7-8.2)
[2025-01-10 14:40] LABS: RHEUMATOID FACTOR QUANT < 3.5 IU/ML (<14)
[2025-01-10 14:42] LABS: ERYTHROCYTE SEDIMENTATION RATE 88 mm/hr (0-20)
== END ==
LOC: M LAB REF 11:50
PROVIDERS: ATTEND Nurse Practitioner Family
DX: M25.50 Pain in unspecified joint (principal)

== ENCOUNTER → 2025-05-16 | Outpatient (CLI) | payer OTHER ==
[~2025-05-16] MED LIST changes: -IBUP-1022 PO; +IBUP600T42 PO
[2025-05-16 09:48] LABS: ESTIMATED AVERAGE GLUCOSE 108.0 MG/DL (60-110)
[2025-05-16 10:11] LABS: C REACTIVE PROTEIN QUANTITATIV 3.3 MG/DL (<1.0)
[2025-05-16 10:13] LABS: LUTEINIZING HORMONE 3.0 mIU/ML
== END ==
LOC: M LAB 08:35
PROVIDERS: ATTEND Pediatrics
DX: R79.82 Elevated C-reactive protein (CRP) (principal); E66.9 Obesity, unspecified; E23.0 Hypopituitarism

== ENCOUNTER → 2025-05-24 | Outpatient (CLI) | payer OTHER | LOC: M PLARAD 09:29 | PROVIDERS: ATTEND Physical Medicine & Rehabilitation | DX: M51.372 Other intervertebral disc degeneration, lumbosacral region with discogenic back pain and lower extremity pain (principal); M47.27 Other spondylosis with radiculopathy, lumbosacral region; M47.897 Other spondylosis, lumbosacral region ==

== ENCOUNTER → 2025-06-05 | Outpatient (REF) | payer OTHER | LOC: M LAB REF 15:22 | PROVIDERS: ATTEND Pediatrics | DX: R30.0 Dysuria (principal) ==

== ENCOUNTER → 2025-07-29 | Outpatient (CLI) | payer OTHER | LOC: M PLAIMG 09:10 | PROVIDERS: ATTEND Pediatrics | DX: M54.59 Other low back pain (principal) ==

== ENCOUNTER → 2025-08-02 | Outpatient (CLI) | payer OTHER | LOC: M RAD 13:16 | PROVIDERS: ATTEND Pediatrics | DX: M54.50 Low back pain, unspecified (principal); K76.0 Fatty (change of) liver, not elsewhere classified; R16.0 Hepatomegaly, not elsewhere classified; K80.20 Calculus of gallbladder without cholecystitis without obstruction; N20.0 Calculus of kidney; K42.9 Umbilical hernia without obstruction or gangrene ==